=== PATIENT | female | born 1995 | race African-American/Black ===

== ENCOUNTER 2019-11-21 22:27 | Emergency (ER) | payer OTHER ==
[~2019-11-21] VITALS: Ht 157.5 cm; Wt 95.3 kg
[~2019-11-21 22:27] MED LIST: KEFLEX500 MG PO; NOHOMEMEDICATIONS
[2019-11-21 22:34] VITALS: BP 118/64
[2019-11-21] MEDS ORDERED: PROAIR HFA8.5 GM INH (22:39)
[2019-11-21] MEDS ORDERED: BACITRACIN28.4 G1 TOP (23:40)
== END 2019-11-22 00:23 | disposition home or self-care (01) ==
LOC: ER 22:27
DX: S91.011A Laceration without foreign body, right ankle, initial encounter (principal); J45.909 Unspecified asthma, uncomplicated; F17.210 Nicotine dependence, cigarettes, uncomplicated; Z88.6 Allergy status to analgesic agent; W25.XXXA Contact with sharp glass, initial encounter; Y93.89 Activity, other specified; Y92.89 Other specified places as the place of occurrence of the external cause; Y99.8 Other external cause status

== ENCOUNTER 2019-11-30 11:48 | Emergency (ER) | payer OTHER ==
[~2019-11-30] VITALS: Ht 157.5 cm; Wt 91.2 kg
[~2019-11-30 11:48] MED LIST changes: +BACITRACIN28.4 G1 TOP; +PROAIR HFA8.5 GM INH
[2019-11-30 11:52] VITALS: BP 122/67
== END 2019-11-30 12:15 | disposition home or self-care (01) ==
LOC: ER 11:48
DX: S91.011D Laceration without foreign body, right ankle, subsequent encounter (principal); J45.909 Unspecified asthma, uncomplicated; F17.210 Nicotine dependence, cigarettes, uncomplicated; Z79.2 Long term (current) use of antibiotics; Z79.899 Other long term (current) drug therapy; W25.XXXD Contact with sharp glass, subsequent encounter